=== PATIENT | male | born 1965 | race Caucasian/White ===

== ENCOUNTER 2023-08-20 12:47 | Outpatient (AMB) | payer BC, SELFPAY ==
--- NOTE | 2023-08-20 12:54 | MHC.PC.OV ---
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 Referral to for [facility] for right hand injury. Dermatology referral for psoriosis. 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 He last saw a pcp 10-15 years ago. He states that he not diagnosed with any medical problems. Musculoskeletal: He complains today of a right hand pain. He had previous surgery on the right in 1996 and then reinjured the hand in 2014, not requiring surgery at that time. Derm: has a hx of psoriasis and used to be on clobetasol 0.05 mg and is requesting this today. he states it is flared on his right lower leg. Recently retired from [employer] de[employer]. Colonoscopy: never had this done PSA: never had LDCT: never had this done, quit smoking 9 years ago. He still smokes cigars daily. He smoked 1.5 packs a day for over 30 years. Brother has pancreatic ca. Mother had ca unknown type. No heart disease. PFSH Family History (Updated 08/20/23 @ 13:02 by Jeannette Suarez CMA) Mother FH: mental illness Manic depression Social History (Updated 08/20/23 @ 13:01 by Jeannette Suarez CMA) Housing: House Cigarette Packs Per Day: 1 Years Smoked: 40, quit 2014 e-Cigarette/Vaping Use: Never Used service: No Current occupational status: retired Cognitive needs: No Hearing needs: No Vision needs: Yes (glasses) Questionnaire PHQ-9 Over the last 2 weeks, how often have you been bothered by any of the following problems? 1. Little interest or pleasure in doing things: not at all 2. Feeling down, depressed, or hopeless: not at all 3. Trouble falling or staying asleep, or sleeping too much: not at all 4. Feeling tired or having little energy: not at all 5. Poor appetite or overeating: not at all 6. Feeling bad about yourself - or that you are a failure or have let yourself or your family down: not at all 7. Trouble concentrating on things, such as reading the newspaper or watching television: not at all 8. Moving or speaking so slowly that other people could have noticed. Or the opposite - being so fidgety or restless that you have been moving around a lot more than usual: not at all 9. Thoughts that you would be better off or of hurting yourself in some way: not at all Total score: 0 Depression Screening Interpretation: Negative Depression Screening Done: Yes 01093 - PHQ-9 Billing: Yes Source: Developed by Drs. Haris Muller, Sarai Bowen, Jonathan Valdivia and colleagues, with an educational justina from [employer]. Thrive Questionnaire Date Thrive assessed: 08/20/23 I am a: Patient What is your living situation today?: I have a steady place to live Within the past 12 months, did the food you bought not last and you didn't have the money to get more?: Never true Within the past 12 months, did you worry whether your food would run out before you got money to buy more?: Never true Do you have trouble paying for medicines?: No Do you have trouble getting transportation to medical appointments?: No Do you have trouble paying your heating and electricity bill?: No Do you have trouble taking care of your child, family member or friend?: No Do you have trouble with day-to-day activities such as bathing, preparing meals, shopping, managing finances, etc.?: No Are you currently unemployed and looking for a job?: No Are you interested in more education?: No Please select the resources that you would like help with: None Currently or been in a relationship where the following occur: No concerns reported THRIVE Score: 0 AUDIT C Alcohol Use Questionnaire (AUDIT-C) 1. How often do you have a drink containing alcohol?: 2-3 times a week (once a week) 2. How many drinks containing alcohol do you have on a typical day when you are drinking?: 5 or 6 3. How often do you have six or more drinks on one occasion?: Monthly Total Score: 7 Score Reviewed/Action Taken: Yes AVIS-7 AMB Questionnaire AVIS-7 Date AVIS - 7 assessed: 08/20/23 Feeling nervous, anxious, or on edge: 0 = Not at all Not being able to stop or control worryin = Not at all Worrying too much about different things: 0 = Not at all Trouble relaxin = Not at all Being so restless that it is hard to sit still: 0 = Not at all Becoming easily annoyed or irritable: 0 = Not at all Feeling afraid as if something awful might happen: 0 = Not at all Total AVIS-7 score (0-4 normal; 5-9 mild; 10-14 moderate; 15-21 severe): 0 Source: Developed by Drs. Haris Muller, Sarai Bowen, Jonathan Valdivia and colleagues, with an educational justina from [employer]. AVIS-7 Assessment Billing AVIS-7 Assessment Tool: AVIS-7 Assessment 87584 Physical exam (Primary Care) Vital Signs: Last Vital Signs Temp 98.6 F 08/20/23 13:03 Pulse 89 08/20/23 13:03 Resp 14 08/20/23 13:03 BP 136/80 08/20/23 13:03 Pulse Ox 98 08/20/23 13:03 Oxygen Delivery Method Room Air 08/20/23 13:03 BMI result Body Mass Index 29.0 Tobacco/Smoking Status: Tobacco use Status e-Cigarette/Vaping Use Never Used 08/20/23 13:08 Depression Screening Interpretation: Negative Currently or been in a relationship where the following occur: No concerns reported Const Orientation/consciousness: patient oriented x3 HENMT Ears: hearing grossly normal bilaterally Neck Thyroid: Thyroid normal Lymphatic: no lymphadenopathy noted Resp Auscultation: clear to auscultation bilaterally Cardio Rate: regular rate Rhythm: regular rhythm Heart sounds: S1 normal heart sound present and S2 normal heart sound present GI Inspection: Yes normal to inspection Palpation (GI): Soft to palpation and Other GI palpation findings present (nontender, no cva tenderness) Auscultation: normoactive bowel sounds Rectal Exam - Male: Yes deferred Skin Other: There is a slight raised pink, silver flaky patch noted on the right anterior leg Neuro General: patient oriented x3, gait normal and no focal motor deficits Assessment and Plan Assessment & Plan (1) Encounter to establish care: Code(s): Z76.89 - Persons encountering health services in other specified circumstances Plan: labs ordered today hm reviewed ordered colonoscopy referral for low dose chest ct (2) Tobacco use disorder: Code(s): F17.200 - Nicotine dependence, unspecified, uncomplicated Plan: encouraged cessation (3) Psoriasis: Code(s): L40.9 - Psoriasis, unspecified Plan: clobetasol ordered. advised prolonged use can cause atrophy of the skin. (4) Right hand pain: Code(s): M79.641 - Pain in right hand Plan: referral to [facility] Orders: Orders TSH reflex Free T4 Today F17.200 - Nicotine dependence, unspecified, uncomplicated, L40.9 - Psoriasis, unspecified, Z13.220 - Encounter for screening for lipoid disorders, Z76.89 - Persons encountering health services in other specified circumstances Complete Blood Count Auto Diff Today F17.200 - Nicotine dependence, unspecified, uncomplicated, L40.9 - Psoriasis, unspecified, Z13.220 - Encounter for screening for lipoid disorders, Z76.89 - Persons encountering health services in other specified circumstances PSA, Ultra Sensitive Today F17.200 - Nicotine dependence, unspecified, uncomplicated, L40.9 - Psoriasis, unspecified, R06.09 - Other forms of dyspnea, Z13.220 - Encounter for screening for lipoid disorders, Z76.89 - Persons encountering health services in other specified circumstances Comprehensive [place]. Panel Fast Today F17.200 - Nicotine dependence, unspecified, uncomplicated, L40.9 - Psoriasis, unspecified, Z13.220 - Encounter for screening for lipoid disorders, Z76.89 - Persons encountering health services in other specified circumstances Lipid Panel Today F17.200 - Nicotine dependence, unspecified, uncomplicated, L40.9 - Psoriasis, unspecified, Z13.220 - Encounter for screening for lipoid disorders, Z76.89 - Persons encountering health services in other specified circumstances Referrals Thoracic/General Surgery Referral F17.200 - Nicotine dependence, unspecified, uncomplicated, L40.9 - Psoriasis, unspecified, Z13.220 - Encounter for screening for lipoid disorders, Z76.89 - Persons encountering health services in other specified circumstances Open Access Screening Colonoscopy Referral F17.200 - Nicotine dependence, unspecified, uncomplicated, L40.9 - Psoriasis, unspecified, Z12.11 - Encounter for screening for malignant neoplasm of colon, Z12.12 - Encounter for screening for malignant neoplasm of rectum, Z13.220 - Encounter for screening for lipoid disorders, Z76.89 - Persons encountering health services in other specified circumstances Dermatology Referral F17.200 - Nicotine dependence, unspecified, uncomplicated, L40.9 - Psoriasis, unspecified, Z13.220 - Encounter for screening for lipoid disorders, Z76.89 - Persons encountering health services in other specified circumstances Orthopedics Referral M79.641 - Pain in right hand Medications: New clobetasol 0.05% 1 appl topical BID 2 weeks 60 grams 3RF Coding Level of Care Code New Pt Level 4 (37659) Complex EM visit Add On G2211 Diagnoses Encounter to establish care Z76.89 Tobacco use disorder F17.200 Psoriasis L40.9 Right hand pain M79.641 Additional Codes AVIS-7 Assessment Billing - AVIS-7 Assessment Tool: AVIS-7 Assessment 01096 ([id number])
[2023-08-20 13:03] VITALS: BP 136/80; PULSE 89; RESP 14; TEMP 37; O2SAT 98; BMI 29.0
== END 2023-08-20 13:41 | disposition home or self-care (01) ==
PROVIDERS: PCP Physician Assistant; Visit Provider Physician Assistant
DX: M79.641 Pain in right hand (principal); L40.9 Psoriasis, unspecified; Z76.89 Persons encountering health services in other specified circumstances; F17.290 Nicotine dependence, other tobacco product, uncomplicated
CPT/HCPCS: 99204

== ENCOUNTER 2024-01-16 09:18 | Outpatient (REF) | payer BC, SELFPAY ==
--- NOTE | ~2024-01-16 | CT_ITS ---
EXAMINATION: CT LOW-DOSE SCREENING CHEST WITHOUT CONTRAST CLINICAL INFORMATION: Personal history of nicotine dependence. The patient has a 88 pack-year history of smoking, having quit 9 years ago. COMPARISON: None available. TECHNIQUE: Multidetector volumetric CT imaging of the chest is performed on a Siemens SOMATOM Definition scanner without contrast using low dose technique. Additional 2D coronal and sagittal reformatted images and axial 3D maximum intensity projection (MIP) images are generated on the CT workstation. This CT examination was performed using dose optimization techniques as appropriate, variously including the following: *Automated exposure control *Adjustment of mA and/or kV according to patient size (this includes techniques or standardized protocols for targeted exams where dose is matched to indication/reason for exam; i.e. extremities or head) *Use of iterative reconstruction technique TOTAL EXAM DLP: 68 mGy-cm. CTDIvol: 1.81 mGy. FINDINGS: PULMONARY NODULES: No suspicious pulmonary nodules. There are tiny benign, calcified right lung granulomas (5:205, 345 and 367). LUNGS: Lungs bilaterally symmetrically expanded. No infiltrate, effusion or pneumothorax. There is a tiny focus of scar/subsegmental atelectasis within the lower lingula. Central airways patent. MEDIASTINUM: No mediastinal, hilar or axillary adenopathy or free fluid collection. CORONARY ARTERY CALCIFICATION: Very mild. THYROID GLAND: Unremarkable to the extent seen. CARDIOVASCULAR STRUCTURES: Aortic and heart size normal. There are mild atherosclerotic calcifications of the thoracic aorta and great vessel origins. No pericardial effusion. CHEST WALL/AXILLA: Unremarkable. UPPER ABDOMEN: Included portions of the solid organs in the upper abdomen unremarkable on noncontrast imaging. OSSEOUS STRUCTURES: There is multi-level mild thoracolumbar spondylosis. No acute or aggressive osseous finding is noted. CT/CT lung screening IMPRESSION: No noncalcified nodule is seen. There is no pulmonary mass, infiltrate or groundglass opacity. No thoracic lymphadenopathy or pleural effusion is seen. No aggressive osseous lesion. ASSESSMENT: 1. Lung-RADS Category 1: Negative. There are no nodules or there are definitely benign nodules. N/A 2. Lung-RADS Category S: Negative. There are no clinically significant or potentially clinically significant findings not related to the lungs requiring urgent additional evaluation. RECOMMENDATION: Continued routine annual low-dose CT lung screening in 1 year is recommended. An order for CT CHEST LOW DOSE CANCER SCREENING ([id number]) can be placed. Electronically signed by: Richie Birmingham MD 03/10/2024 09:34 AM JLUIS
== END 2024-01-16 09:19 | disposition home or self-care (01) ==
LOC: HO.CT 09:18
PROVIDERS: PCP Physician Assistant; Visit Provider Physician Assistant Medical
DX: Z12.2 Encounter for screening for malignant neoplasm of respiratory organs (principal); Z87.891 Personal history of nicotine dependence
CPT/HCPCS: 71271

== ENCOUNTER 2024-01-16 09:34 | Outpatient (AMB) | payer BC, SELFPAY ==
--- NOTE | 2024-01-16 07:49 | MHC.OFFVIS ---
Intake Visit Reasons: Former Smoker Allergies No Known Allergies Allergy (Verified 08/20/23 12:59) HPI HPI Former Smoker: Details: Initial visit for this 58yo smoker with a 35PYH. Patient started smoking at age 14 for 34 years at 1ppd. Quit cigarettes 9 years ago in 2015- now smokes cigars. Smokes 2-3 cigars a day currently. . Denies marijuana use. Denies second hand smoke exposure. Denies exposure to chemicals or substances like asbestos. . Denies known family history of lung cancer. Denies personal history of cancers. Denies chest CT in last year. . Denies recent travel outside the [place]. [place] Denies recent respiratory illness or recent hospitalization for respiratory issues. Denies testing positive for COVID. Admits receiving COVID Vaccine x2. . Denies fever, chills, new/worsening cough, hemoptysis, hoarseness or dysphagia. Denies significant chest pain, significant dyspnea or unintentional weight loss. Patient Lung Cancer Screening Questionnaire reviewed with patient by provider. . Shared Decision Making Completed. Patient meets criteria. Discussed in detail with patient, the risk vs benefit of LDCT screening. Patient consents to proceed with scan. Discussed and encouraged smoking cessation. [facility] Medical History (Updated 01/16/24 @ 09:46 by Marilee Jarrell PA-C) Personal history of nicotine dependence Surgical History (Updated 01/16/24 @ 09:49 by Marilee Jarrell PA-C) History of hand surgery Family History (Updated 08/20/23 @ 13:02 by Jeannette Suarez CMA) Mother FH: mental illness Manic depression Social History (Updated 01/16/24 @ 09:47 by Marilee Jarrell PA-C) Housing: House Tobacco use type: Cigar Cigarette Packs Per Day: 1 Years Smoked: (1ppd x 34yrs cigarettes - quit 2015 - now smokes cigars e-Cigarette/Vaping Use: Never Used service: No Current occupational status: retired Cognitive needs: No Hearing needs: No Vision needs: Yes (glasses) Assessment & Plan Assessment & Plan (1) Personal history of nicotine dependence: Comment: (former cigarette smoker 1ppd x 34yrs, 35pyh quit 9yr ago in 2015 - now cigars) Code(s): Z87.891 - Personal history of nicotine dependence Category: Medical Plan: - SDM visit completed today in office. - Patient meets criteria for LDCT for lung cancer screening purposes and is asymptomatic. - Smoking cessation counseling offered. Patients can always call [phone]. - Will arrange for a LDCT scan of the chest for screening purposes at [facility]. - Risks, benefits, and alternatives were discussed in detail and the patient agrees to proceed. - Risks discussed include but are not limited to: radiation exposure, anxiety during testing and while awaiting results, false negatives, false positives and possibility of additional intervention such as further imaging or surgical procedures for benign disease. - Benefits are obviously detection of lung cancer at an early stage which can lead to improved outcomes. - Discussed the importance of screening program compliance with adherence to yearly LDCT scan as scheduled - or sooner interval scans for personalized screening regimen. - Discussed follow up plan. Our office will send a letter discussing results and if needed set up phone call and office visit based on CT findings. - Patient educated on results categorization and the management decisions for suspicious findings potentially found on the screening LDCT scan. Any patient with a Lung RADS score of 3 or 4 will be reviewed by a multidisciplinary team at [facility] to form a plan of action in regards to scan findings. - If further work up is warranted for a suspicious lung finding this will be followed by the Lung Cancer Screening program in conjunction with the Thoracic Surgery Department at [facility]. - A copy of the office note and LDCT will be sent to the patient's PCP - as well as documentation on any associated further plans of care. - Incidental findings on LDCT are the PCP's responsibility. These findings are indicated with an S finding on the LDCT Assessment. A note discussing the findings will be sent to the PCP who is then responsible for further management. - All questions answered.? Coding Level of Care Code Lung Cancer Screening G0296 Diagnoses Personal history of nicotine dependence Z87.891
== END 2024-01-16 13:28 | disposition home or self-care (01) ==
PROVIDERS: PCP Physician Assistant; Visit Provider Physician Assistant Medical
DX: Z87.891 Personal history of nicotine dependence (principal)
CPT/HCPCS: G0296